=== PATIENT | female | born 1975 | race Hispanic/Latino ===

== ENCOUNTER 2017-08-22 20:20 | Emergency (ER) | payer BC ==
[2017-08-22 20:29] VITALS: BP 199/112; PULSE 100; RESP 20; TEMP 97.7; O2SAT 100
--- NOTE | 2017-08-22 20:56 | ED PDOC ---
HPI: Psych/Substance Abuse Time Seen by Provider: 08/22/17 20:33 Chief Complaint (Nursing): Psychiatric Evaluation Chief Complaint (Provider): Psychiatric Evaluation History Per: Patient History/Exam Limitations: no limitations Onset/Duration Of Symptoms: Days (x2 weeks) Current Symptoms Are (Timing): Still Present Additional Complaint(s): Shantel Meyers is a 42 year old female with a history of dyslipidemia , hypertension, and diabetes presents to the ED with a chief complaint of depression that she had been experiencing for the past two weeks. 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 Patient sites multiple issues including financial stressors, as well as the recent expiration of her mother contributing to her depression. She denies suicidal or homicidal ideation, but reports poor sleep patterns and feeling overwhelmed. Past Medical History Reviewed: Historical Data, Nursing Documentation, Vital Signs Vital Signs: Last Vital Signs Temp 97.7 F 08/22/17 20:26 Pulse 100 H 08/22/17 20:26 Resp 20 08/22/17 20:26 BP 199/112 H 08/22/17 20:26 Pulse Ox 100 08/22/17 20:26 - Medical History PMH: Diabetes, HTN, Chronic Kidney Disease Denies: HIV - Surgical History Surgical History: Tonsillectomy - Family History Family History: States: Unknown Family Hx - Social History Current smoker - smoking cessation education provided: No Alcohol: None Drugs: Denies - Home Medications Home Medications: Ambulatory Orders Medication Instructions Recorded Ca/Cu/Fe/Iodine/mg/Mn/Potass 3 tab PO DAILY 09/21/15 [Multiminerals] Chlorophyll [Ennds] 3 tab PO DAILY 09/21/15 Ibuprofen [Motrin] 600 mg PO Q6 PRN 09/21/15 Atorvastatin [Lipitor] 10 mg PO DAILY #0 tab 09/26/15 Ciprofloxacin/Ciprofloxa HCl 500 mg PO Q12 #20 ter 09/26/15 [Ciprofloxacin] Fenofibrate [Tricor] 145 mg PO DAILY #0 tab 09/26/15 GlipiZIDE SR [Glucotrol XL] 10 mg PO ACBD #0 tab 09/26/15 MetFORMIN [glucoPHAGE] 1,000 mg PO BIDWM #0 tab 09/26/15 SITagliptin [Januvia] 100 mg PO DAILY #0 tab 09/26/15 Valsartan [Diovan] 160 mg PO DAILY #0 tab 09/26/15 - Allergies Allergies/Adverse Reactions: Allergies Allergy/AdvReac Type Severity Reaction Status Date / Time latex Allergy RASH Verified 08/22/17 20:29 Penicillins Allergy RASH Verified 08/22/17 20:29 shrimp Allergy ITCHING Verified 08/22/17 20:29 Review of Systems Psych: Positive for: Depression Physical Exam - Reviewed Nursing Documentation Reviewed: Yes Vital Signs Reviewed: Yes - Physical Exam Appears: Positive for: Non-toxic, No Acute Distress (Patient is obese) Head Exam: Positive for: ATRAUMATIC, NORMOCEPHALIC Skin: Positive for: Normal Color, Warm, Dry Eye Exam: Positive for: EOMI, Normal appearance, PERRL Neck: Positive for: Normal, Painless ROM, Supple Cardiovascular/Chest: Positive for: Regular Rate, Rhythm. Negative for: Murmur Respiratory: Positive for: Normal Breath Sounds. Negative for: Wheezing Gastrointestinal/Abdominal: Positive for: Normal Exam, Soft. Negative for: Tenderness Back: Positive for: Normal Inspection. Negative for: L CVA Tenderness, R CVA Tenderness Extremity: Positive for: Normal ROM. Negative for: Pedal Edema, Swelling Neurologic/Psych: Positive for: Alert, Oriented. Negative for: Motor/Sensory Deficits - ECG O2 Sat by Pulse Oximetry: 100 (RA) Pulse Ox Interpretation: Normal Medical Decision Making Medical Decision Making: Impression: 42 y/o female with depression Plan: * Crisis Evaluation * Reevaluation 21:51 Patient was evaluated by crisis, diagnosis of depression. Patient is stable for discharge home. Scribe Attestation: Documented by Astrid Yusuf, acting as a scribe for Tigre Bernstein MD. Provider Scribe Attestation: All medical record entries made by the Scribe were at my direction and personally dictated by me. I have reviewed the chart and agree that the record accurately reflects my personal performance of the history, physical exam, medical decision making, and the department course for this patient. I have also personally directed, reviewed, and agree with the discharge instructions and disposition. Disposition - Clinical Impression Clinical Impression: Depression - Disposition Disposition: Routine/Home Disposition Time: 21:51 Condition: STABLE Instructions: Depression (ED) Forms: [facility] ([place]), [facility] ED School/Work Excuse
== END 2017-08-22 21:56 | disposition home or self-care (01) ==
LOC: H.ER 20:20
DX: F32.9 Major depressive disorder, single episode, unspecified (principal); E11.22 Type 2 diabetes mellitus with diabetic chronic kidney disease; E78.5 Hyperlipidemia, unspecified; I12.9 Hypertensive chronic kidney disease with stage 1 through stage 4 chronic kidney disease, or unspecified chronic kidney disease; Z79.84 Long term (current) use of oral hypoglycemic drugs; Z81.8 Family history of other mental and behavioral disorders; Z88.0 Allergy status to penicillin